=== PATIENT | female | born 1960 | race Caucasian/White ===

== ENCOUNTER → 2017-04-02 | Outpatient (CLI) | payer OTHER ==
[~2017-04-02] MED LIST: ALBU0.632 IH; CITA20TA12 PO; ESTR1PAT28 TOP; MELO-195 PO; [UNRECOGNIZED DRUG - REMARK]
== END ==
LOC: LAB 15:41
PROVIDERS: ATTEND Family Medicine
DX: M79.641 Pain in right hand (principal); M25.541 Pain in joints of right hand
CPT/HCPCS: 36415; 84550; 85652

== ENCOUNTER → 2017-04-16 | Outpatient (CLI) | payer OTHER ==
--- NOTE | 2017-04-18 11:48 | Diagnostic Imaging Report ---
EXAMINATION: Bilateral screening mammogram with a Computer Aided Detection (CAD) system. INDICATION: Screening. PERSONAL HISTORY: No current complaints stated on the questionnaire. COMPARISON: 01/07/2016. FINDINGS: The breasts are composed of scattered fibroglandular densities. There are scattered benign-appearing calcifications. Scarring is noted in the upper outer aspect of the breasts on both sides, similar to prior exams. Allowing for technique and positional differences, no suspicious change is seen. IMPRESSION: No significant change. ACR BI-RADS Category 2: Benign findings. Result letter will be mailed to the patient. Note: At least 10% of breast cancer is not imaged by mammography. Dictated by: Dictated on workstation # [id number]
== END ==
LOC: RAD 14:56
PROVIDERS: ATTEND Obstetrics & Gynecology
DX: Z12.31 Encounter for screening mammogram for malignant neoplasm of breast (principal)
CPT/HCPCS: 77067

== ENCOUNTER 2017-06-18 05:35 | Outpatient (CLI) | payer OTHER ==
[~2017-06-18] VITALS: Ht 162.6 cm; Wt 90.7 kg
== END 2017-06-18 14:18 ==
LOC: PREOP 05:35
PROVIDERS: ATTEND Orthopaedic Surgery
DX: Z01.818 Encounter for other preprocedural examination (principal); M65.331 Trigger finger, right middle finger
CPT/HCPCS: 87081

== ENCOUNTER 2017-06-22 10:00 | Day surgery (SDC) | payer OTHER ==
--- NOTE | 2017-06-12 15:19 | HISTORY AND PHYSICAL ---
DATE OF SERVICE: 06/22/2017 Right long finger A1 krystina release. HISTORY: The patient is a 57-year-old female with complaints of right long finger catching and locking. She reports pain at the base of her long finger. She has undergone 2 injections, which have provided only temporary relief of her symptoms. She reports activity limitations because of the finger. This has been interfering with her activities of daily living. Due to failure to resolve with conservative measures, the patient has elected to proceed with operative intervention. REVIEW OF SYSTEMS: No chest pain, no shortness of breath, no dysuria. PAST MEDICAL HISTORY: Denies. PAST SURGICAL HISTORY: , cholecystectomy, hysterectomy, sinus surgery, breast reduction. FAMILY HISTORY: Pancreatic cancer. PRIMARY CARE PROVIDER: Dr. Jacobs. MEDICATIONS: None. No known drug allergies. SOCIAL HISTORY: The patient denies alcohol and tobacco use. PHYSICAL EXAMINATION: The patient is well-developed, well-nourished, in no acute distress. HEENT: Normocephalic, atraumatic. Pupils equal, round, and reactive bilaterally. Oropharynx is clear. NECK: Supple with no lymphadenopathy. LUNGS: Clear to auscultation bilaterally. HEART: Regular rate and rhythm. ABDOMEN: Soft, nontender, nondistended. EXTREMITIES: The right long finger demonstrates tenderness at her A1 krystina. She could demonstrate active catching. She has full MCP, DIP, and PIP flexion and extension. No skin lesions are noted. IMPRESSION: Right long finger trigger finger. PLAN: Right long finger A1 krystina release. The risks and benefits, operative identifications and recovery were discussed at length with the patient. She understands and wishes to proceed. Job ID: [id number] DocumentID: [id number] Dictated Date: 06/12/2017 14:49:06 Acute Coordinator Date: 06/12/2017 15:19:08 Dictated By: MERCED MINOR MD
[~2017-06-22] VITALS: Ht 162.6 cm; Wt 90.7 kg
[2017-06-22] MEDS ORDERED: LIDOCAINE 1% INJ 20 ML (XYLOCAINE) VIAL ONE (10:08)
[2017-06-22] MEDS ORDERED: BUPIVACAINE 0.5% 30 ML (SENSORCAINE) VIAL ONE (10:08)
[2017-06-22] MEDS ORDERED: MIDAZOLAM 2 MG/2 ML (VERSED) VIAL ONE (10:13)
[2017-06-22] MEDS ORDERED: LACTATED RINGERS 1,000 ML IV PRN (10:13)
[2017-06-22] MEDS ORDERED: proPOfol 200 MG/20 ML (DIPRIVAN) VIAL IV ONE (10:14)
[2017-06-22] MEDS ORDERED: LIDOCAINE PF 2% 5 ML (XYLOCAINE) VIAL ONE (10:14)
[2017-06-22] MEDS ORDERED: CATHETER FLUSH 10 ML SYR IV PRN (10:15)
[2017-06-22] MEDS ORDERED: ceFAZolin 1 GM/NS 50 ML IVPB IV ONE ×2 (10:15)
[2017-06-22] MEDS ORDERED: fentaNYL INJECTION 100 MCG/2 ML AMP ONE (10:16)
[2017-06-22 10:45] VITALS: BP 136/83
[2017-06-22] MEDS ORDERED: HYDROcodone/APAP 5 MG/325 MG (LORTAB) TAB PO PRN (10:45)
--- NOTE | 2017-06-22 10:46 | Progress Note-Pre Operative ---
Pre-Operative Progress Note H&P Reviewed The H&P was reviewed, patient examined and no changes noted. Date Seen by Provider: Jun 22, 2017 Time Seen by Provider: 10:40 Date H&P Reviewed: Jun 22, 2017 Time H&P Reviewed: 10:46 Pre-Operative Diagnosis: right long finger trigger finger MERCED MINOR MD Jun 22, 2017 10:46
--- NOTE | 2017-06-22 10:48 | Progress Note-Post Operative ---
Post-Operative Progess Note Surgeon (s)/Calendering Machine Operator (s) Surgeon MERCED MINOR MD Calendering Machine Operator: Channing Barrera Pre-Operative Diagnosis right long finger trigger finger Post-Operative Diagnosis right long finger trigger finger Procedure & Operative Findings Date of Procedure 06/22/17 Procedure Performed/Findings right long finger A1 krystina release Anesthesia Type MAC plus local Estimated Blood Loss Estimated blood loss (mL): minimal Specimens/Packing Specimens Removed none Packing: none MERCED MINOR MD Jun 22, 2017 10:48
[2017-06-22] MEDS ORDERED: MIDAZOLAM 2 MG/2 ML (VERSED) VIAL IVP ONE (11:00)
[2017-06-22] MEDS ORDERED: LACTATED RINGERS 1,000 ML IV ONE (11:14)
[2017-06-22 11:45] VITALS: BP 133/83
[2017-06-22] MEDS ORDERED: HYDR-3812 PO (12:04)
[2017-06-22 12:15] VITALS: BP 117/88
[2017-06-22 12:25] VITALS: BP 117/88
--- NOTE | 2017-06-23 06:08 | OPERATIVE REPORT ---
DATE OF SERVICE: 06/22/2017 PREOPERATIVE DIAGNOSIS: Right long finger trigger finger. POSTOPERATIVE DIAGNOSIS: Right long finger trigger finger. PROCEDURE PERFORMED: Right long finger A1 krystina release. SURGEON: Mihai Minor MD ELECTRIC TRACK SWITCH MAINTAINER: Channing Barrera who assisted throughout the procedure and closed the incision. ANESTHESIA: Monitored anesthesia care plus local by Clarissa Bazzi CRNA TOURNIQUET TIME: 4 minutes at 250 mmHg. ESTIMATED BLOOD LOSS: Minimal. DRAINS: None. COMPLICATIONS: None. POSTOPERATIVE PLAN: Early range of motion. The patient was transferred to the recovery room awake and in stable condition. STATEMENT OF MEDICAL NECESSITY: The patient is a 57-year-old right hand dominant female with complaints of right long finger catching and locking. She was markedly tender over A1 krystina. She had undergone treatment with injections but only temporarily relief of her symptoms and due to functional impairment and failure to improve with conservative measures, the patient elected to proceed with surgical intervention. DESCRIPTION OF PROCEDURE: After risks and benefits of the procedure were discussed and questions were answered an informed consent was signed and placed on the chart. The operative site was confirmed in the preoperative holding area and initialed by the surgeon. The patient was then transported to the operating room and after adequate level of monitored anesthesia care was obtained, a time-out was called confirming the operative site and under sterile conditions, the right long finger incision site was infiltrated with a combination of plain lidocaine and plain Marcaine. The right upper extremity was then elevated and the tourniquet was inflated to 250 mmHg. A longitudinal incision was made over the A1 krystina palmarly and the underlying soft tissues were carefully dissected with a hemostat. The A1 krystina was identified and incised longitudinally. The finger was then taken through a range of motion with full flexion and extension noted with no catching or locking noted. The superficial aspect of the flexor tendon demonstrated longitudinal fraying and a split which was incomplete. The tourniquet was deflated for total tourniquet time of 4 minutes. Pressure was used for hemostasis. The wound was copiously irrigated and closed with 4-0 nylon in simple interrupted fashion. A soft dressing was applied and the patient was transferred to the recovery room awake and in stable condition. Job ID: [id number] DocumentID: [id number] Dictated Date: 06/22/2017 11:19:36 Tower Attendant Date: 06/23/2017 06:07:57 Dictated By: MIHAI MINOR MD
== END 2017-06-22 12:25 | disposition home or self-care (01) ==
LOC: SDC 10:00
PROVIDERS: ATTEND Orthopaedic Surgery
DX: M65.331 Trigger finger, right middle finger (principal); J30.2 Other seasonal allergic rhinitis

== ENCOUNTER → 2017-07-04 | Outpatient (CLI) | payer OTHER ==
[~2017-07-04] MED LIST changes: +HYDR-3812 PO
--- NOTE | 2017-07-04 19:28 | Diagnostic Imaging Report ---
INDICATION: Fever, congestion, shortness of breath and cough for four days. EXAMINATION: Two-view chest dated 07/04/2017. COMPARISONS: 09/15/2013. FINDINGS: Heart is unremarkable. Pulmonary vasculature is within normal limits. There is an airspace opacity best seen on the lateral view superimposed upon the mid spine. Given symptoms, this is likely pneumonia perhaps in the left suprahilar region. No effusions are seen and there is no pneumothorax. IMPRESSION: 1. Suspected infiltrate best seen on lateral view within the posterior aspect of the mid chest. Follow-up imaging recommended to assure resolution. Dictated by: Dictated on workstation # [id number]
== END ==
LOC: RAD 17:54
PROVIDERS: ATTEND Family Medicine
DX: R05 Cough (principal); R06.2 Wheezing; R50.9 Fever, unspecified
CPT/HCPCS: 71020

== ENCOUNTER → 2018-04-19 | Outpatient (CLI) | payer OTHER ==
[~2018-04-19] MED LIST changes: +ACHD5005 PO; -HYDR-3812 PO
--- NOTE | 2018-04-19 13:48 | Diagnostic Imaging Report ---
INDICATION: Routine screening. COMPARISON: Comparison is made with prior study from 04/16/2017 and 01/07/2016. TECHNIQUE: 2D and 3D bilateral screening mammography was performed with computer-aided detection (CAD) system. FINDINGS: Scattered fibroglandular densities are identified bilaterally. The overall parenchymal pattern is stable. There is scarring in the upper-outer left breast, stable. There are benign calcifications bilaterally. No mass or malignant appearing microcalcifications are seen. The axillae are unremarkable. IMPRESSION: No mammographic features suspicious for malignancy are identified. ACR BI-RADS Category 2: Benign findings. Result letter will be mailed to the patient. Note: At least 10% of breast cancer is not imaged by mammography. Dictated by: Dictated on workstation # [id number]
== END ==
LOC: RAD 10:56
PROVIDERS: ATTEND Obstetrics & Gynecology
DX: Z12.31 Encounter for screening mammogram for malignant neoplasm of breast (principal)
CPT/HCPCS: 77067

== ENCOUNTER → 2018-07-05 | Outpatient (CLI) | payer OTHER | LOC: CARD 14:25 | PROVIDERS: ATTEND Family Medicine | DX: Z00.00 Encounter for general adult medical examination without abnormal findings (principal); R07.9 Chest pain, unspecified | CPT/HCPCS: 93005 ==

== ENCOUNTER → 2018-07-11 | Outpatient (CLI) | payer OTHER | LOC: CARD 14:15 | PROVIDERS: ATTEND Internal Medicine Interventional Cardiology | DX: R07.9 Chest pain, unspecified (principal) ==

== ENCOUNTER → 2019-05-15 | Outpatient (CLI) | payer OTHER ==
--- NOTE | 2019-05-15 16:35 | Diagnostic Imaging Report ---
PROCEDURE: CT sinuses without contrast TECHNIQUE: Multiple contiguous axial images were obtained through the sinuses without the use of intravenous contrast. Coronal and sagittal reformations were then performed. Auto Exposure Controls were utilized during the CT exam to meet ALARA standards for radiation dose reduction. INDICATION: Right eye and frontal headaches. COMPARISON: Comparison made with prior examination from 09/13/2011. FINDINGS: The frontal and ethmoid sinuses are clear. There is some minimal mucosal thickening in the left sphenoid sinus. There has been bilateral maxillary antrectomy. Both maxillary sinuses are clear. The nasal septum is midline. The mastoid air cells are clear. The globes and intraorbital structures are unremarkable. The nasopharyngeal soft tissues are symmetric and without mass effect. There are some low-density nodules in the left parotid gland, likely lymph nodes. IMPRESSION: Minimal mucosal thickening in the left sphenoid sinus. Previous bilateral maxillary antrectomy. Otherwise, unremarkable CT sinus. Dictated by: Dictated on workstation # [id number]
== END ==
LOC: RAD 13:04
PROVIDERS: ATTEND Nurse Practitioner Family
DX: H57.11 Ocular pain, right eye (principal); Z98.890 Other specified postprocedural states
CPT/HCPCS: 70486

== ENCOUNTER → 2019-05-19 | Outpatient (CLI) | payer OTHER ==
--- NOTE | 2019-05-19 12:33 | Diagnostic Imaging Report ---
Indication: Routine screening. Comparison is made with prior mammogram from 04/19/2018 and 04/16/2017. 2-D and 3-D bilateral screening mammography was performed with CAD. Scattered fibroglandular densities are identified bilaterally. Scarring in the upper outer left breast appears stable. There are scattered benign calcifications bilaterally. No new mass or malignant-appearing microcalcifications are seen. Axillae are unremarkable. Impression: BI-RADS category 2 No mammographic features suspicious for malignancy are identified. Dictated by: Dictated on workstation # [id number]
== END ==
LOC: RAD 10:44
PROVIDERS: ATTEND Obstetrics & Gynecology
DX: Z12.31 Encounter for screening mammogram for malignant neoplasm of breast (principal)
CPT/HCPCS: 77067

== ENCOUNTER 2019-06-14 22:04 | Emergency (ER) | payer OTHER ==
[~2019-06-14] VITALS: Ht 162.6 cm; Wt 95.3 kg
--- NOTE | 2019-06-14 23:11 | ED Lower Extremity ---
General Chief Complaint: Lower Extremity Stated Complaint: L KNEE PAIN Nursing Triage Note: HAD AN INJECTIONIN HER LEFT KNEE ON SUNDAY D/T CHRONIC PAIN FELT GOOD SUNDAY THEN THIS EVENING STARTED HAVING PAIN AND COULD NO LONGER BEAR WEIGHT. Nursing Sepsis Screen: No Definite Risk Source: patient Exam Limitations: no limitations (BRY LEBLANC) History of Present Illness Date Seen by Provider: Jun 14, 2019 Time Seen by Provider: 22:50 Initial Comments Pt presents with left knee pain that initially started 2 weeks ago as a catching or clicking in her knee. she saw an orthopedist on 2 days ago and he injected a steroid and pain medication. 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 She states this morning the knee felt fine but this afternoon it started hurting a little. She put some ice on it and rested it for a few hours, but then started to get ready for a wedding. She then noticed the pain increasing significantly and she was barely able to walk on it. She took some Motrin and Tylenol but they did not help much and she is unable to bear any weight on it currently. (BRY LEBLANC) Initial Comments Here with increasing pain today of the left knee. Did have injected 2 days ago. She was fine yesterday but pain today that limited her ability to walk on it. She is able to move the knee but has significant pain when she stands on it. Denies fevers or increasing redness. Does have some swelling to the knee. Onset: this morning Severity: moderate Method of Injury: unknown Modifying Factors: Improves With Immobilization; Worse With Movement (RODRI MORENO MD) Allergies and Home Medications Allergies Coded Allergies: No Known Drug Allergies (Unverified , 06/14/19) Patient Home Medication List Home Medication List Reviewed: Yes (RODRI MORENO MD) Review of Systems Constitutional: no symptoms reported EENTM: see HPI Respiratory: no symptoms reported Cardiovascular: no symptoms reported Gastrointestinal: no symptoms reported Genitourinary: no symptoms reported Musculoskeletal: joint pain (Left Knee ), joint swelling (Left knee) Skin: no symptoms reported Psychiatric/Neurological: No Symptoms Reported (BRY LEBLANC) Constitutional: No chills, No fever Respiratory: no symptoms reported Cardiovascular: no symptoms reported Musculoskeletal: joint pain (Left Knee ), joint swelling (Left knee), muscle pain (RODRI MORENO MD) Past Whcbxme-Qoiyak-Egxzgx Hx Past Med/Social Hx: Reviewed Nursing Past Med/Soc Hx (RODRI MORENO MD) Patient Social History Alcohol Use: Denies Use Recreational Drug Use: No 2nd Hand Smoke Exposure: No Recent Foreign Travel: No Contact w/Someone Who Travel: No Recent Infectious Disease Expo: No Recent Hopitalizations: No Physical Abuse: No Sexual Abuse: No Mistreated: No Fear: No (BRY LEBLANC) Immunizations Up To Date Date of Influenza Vaccine: Aug 08, 2016 (BRY LEBLANC) Seasonal Allergies Seasonal Allergies: Yes (BRY LEBLANC) Past Medical History Surgeries: Yes (C/S X2, BREAST REDUCTION, FOOT SX) Section, Gallbladder, Hysterectomy Respiratory: No Cardiac: No Neurological: No : No Reproductive Disorders: No 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 0oz. 95.509386du; 34.3 BMI Method:Stated General Appearance: WD/WN, mild distress Neck: full range of motion, normal inspection Cardiovascular: regular rate, rhythm, no edema, no gallop, no JVD, no murmur Respiratory: lungs clear, normal breath sounds, no respiratory distress, no accessory muscle use Back: normal inspection, no vertebral tenderness Knees: right knee non-tender, right knee normal inspection, right knee normal range of motion, right knee no evidence of injury; left knee pain, left knee soft tissue tenderness, left knee swelling Ankles: bilateral ankle non-tender, bilateral ankle normal inspection, bilateral ankle normal range of motion, bilateral ankle no evidence of injury Feet: bilateral foot non-tender, bilateral foot normal inspection, bilateral foot normal range of motion, bilateral foot no evidence of injury Neurologic/Tendon: normal sensation, normal motor functions Neurologic/Psychiatric: no motor/sensory deficits, alert, normal mood/affect, oriented x 3 Skin: normal color, warm/dry (BENJI,BRY MED STUDEN) General Appearance: WD/WN, mild distress Cardiovascular: regular rate, rhythm, no murmur Respiratory: lungs clear, normal breath sounds Knees: left knee other (mild effusion to the left knee but no significant redness. Mild vague warmth but not much different than the right leg. Is able to range the knee to 90 and back to 0.) Neurologic/Psychiatric: alert, oriented x 3 (RODRI MORENO MD) Progress/Results/Core Measures Results/Orders My Orders Orders - RODRI MORENO MD Hydrocodone/Apap 5/325 Tablet (Lortab 5 (06/14/19 23:45) Ketorolac Injection (Toradol Injection) (06/14/19 23:37) Hydrocodone/Apap 5/325 Tablet (Lortab 5 (06/14/19 23:32) Ketorolac Injection (Toradol Injection) (06/14/19 23:32) (RODRI MORENO MD) Medications Given in ED Current Medications Medications Dose Ordered Sig/Shiv Route Start Time Stop Time Status Last Admin Dose Admin Acetaminophen/ Hydrocodone Bitart 1 tab ONCE ONCE PO 06/14/19 23:45 06/14/19 23:46 DC 06/14/19 23:42 1 TAB (RODRI MORENO MD) Vital Signs/I&O 06/14/19 22:20 Temp 98.2 Pulse 91 Resp 18 B/P (MAP) 149/88 (108) Pulse Ox 95 (RODRI MORENO MD) Blood Pressure Mean: 108 Progress Progress Note : Time: 22:50 Progress Note Pt seen by me. Pt presents with knee pain and unable to bear weight. She received a steroid injection 2 days ago and worked a full shift on it yesterday. Likely overworked the knee yesterday, but still a chance of infection from the injection. The knee is slightly swollen, but no redness or warmth indicating a septic joint currently. I spoke with Dr Moreno who saw the patient and prescribed her a Toradol shot and Hydrocodone for pain relief and inflammation. SHe was advised to rest, ice, elevate, and take an anti inflammatory while keeping an eye out for signs of the joint being infected. (BRY LEBLANC) Progress Note : Progress Note I have seen and evaluated the patient and agree with above except as indicated. I have directed the plan of care. Toradol 60 mg IM and hydrocodone 5/325 one tab by mouth given. Monitor patient. 0027: Doing a little better and was able to ambulate to the bathroom with assistance of walker. She feels that she can do this at home at this point with the understanding that if there is findings concerning for infection including fever or increasing redness she will return. Discharged home with return precautions. Patient verbalize understanding instructions and agreement with plan. (RODRI MORENO MD) Departure Impression Primary Impression: Left knee pain Qualified Codes: M25.562 - Pain in left knee Disposition: 01 HOME, SELF-CARE Condition: Stable Departure-Patient Inst. Decision time for Depature: 00:28 (RODRI MORENO MD) Referrals: JORGE NAVARRO DO (PCP/Family) Primary Care Physician Patient Instructions: Knee Pain (DC), Knee Pain Add. Discharge Instructions: All discharge instructions reviewed with patient and/or family. Voiced understanding. You may continue ibuprofen 800 mg every 6-8 hours as needed for pain. You may take the pain medication as prescribed and you may take one pain pill with 1 extra strength Tylenol every 6 hours or 2 extra strength Tylenol every 6 hours but do not exceed 4000 mg of Tylenol/acetaminophen in 24 hours. Use ice packs to the knee and keep it elevated. It is important that you rest the left knee and leg over the next [address] Moran's office on Sunday morning for recheck and appointment. Return for increasing pain, increasing redness, fever, increasing swelling or other concerns as needed. Scripts Hydrocodone Bit/Acetaminophen (Hydrocodone/Acetaminophen 5/325mg Tablet) 1 Tab Tab 1 EACH PO Q6H PRN for PAIN-MODERATE MDD 10 for 2 Days, #8 TAB 0 Refills Prov: RODRI MORENO MD 06/15/19 BRY LEBLANC [facility] Jun 14, 2019 23:11 RODRI MORENO MD Jun 15, 2019 00:30
[2019-06-14] MEDS ORDERED: KETOROLAC 60 MG/2 ML VIAL ONE (23:32)
[2019-06-14] MEDS ORDERED: HYDROcodone/APAP 5 MG/325 MG (LORTAB) TAB ONE (23:32)
[2019-06-14] MEDS ORDERED: KETOROLAC 60 MG/2 ML VIAL IM STA (23:37)
[2019-06-14] MEDS ORDERED: HYDROcodone/APAP 5 MG/325 MG (LORTAB) TAB PO ONE (23:45)
[2019-06-15] MEDS ORDERED: ACHD5005 PO (00:30)
[2019-06-15 00:49] VITALS: BP 131/78
== END 2019-06-15 00:49 | disposition home or self-care (01) ==
LOC: EDUNIT# 22:04 → ER 22:05
DX: M25.562 Pain in left knee (principal); Z90.710 Acquired absence of both cervix and uterus
CPT/HCPCS: 99283

== ENCOUNTER → 2019-06-18 | Outpatient (CLI) | payer OTHER ==
--- NOTE | 2019-06-18 16:44 | Diagnostic Imaging Report ---
PROCEDURE: MRI left joint lower extremity without contrast. TECHNIQUE: Multiplanar, multisequence non contrast-enhanced MRI of the left lower extremity was accomplished. INDICATION: Left knee pain with no known injury. TECHNIQUE: Multiplanar, multisequence noncontrast MRI examination of the left knee. COMPARISON: None. FINDINGS: No acute fracture or dislocation is seen in the left knee. Alignment appears normal. There is a small left knee joint effusion. The articular cartilage in the patellofemoral compartment demonstrates mild thinning and surface irregularity with no large full-thickness defects. The articular cartilage in the medial and lateral compartments demonstrate mild thinning and heterogeneity with no full-thickness defects. There is increased signal in the posterior horn of the medial meniscus, with suspected horizontal tear of the posterior horn (image 17, series 6). There is also mildly increased signal at the anterior horn of the lateral meniscus, with no discrete tear seen. The anterior and posterior cruciate ligaments are intact. The medial collateral ligament appears intact. The lateral collateral ligamentous complex is intact. The extensor mechanism is intact. The medial and lateral retinacula are intact. No soft tissue fluid collections are seen. IMPRESSION: 1. Suspected horizontal tear of the posterior horn of the medial meniscus. Intrasubstance degeneration of the lateral meniscus. 2. Small left knee joint effusion. Dictated by: Dictated on workstation # [id number]
== END ==
LOC: RAD 15:34
PROVIDERS: ATTEND Nurse Practitioner
DX: M17.12 Unilateral primary osteoarthritis, left knee (principal); M25.462 Effusion, left knee; S83.242A Other tear of medial meniscus, current injury, left knee, initial encounter
CPT/HCPCS: 73721

== ENCOUNTER 2019-06-20 05:33 | Outpatient (CLI) | payer OTHER ==
[~2019-06-20] VITALS: Ht 162.6 cm; Wt 95.3 kg
== END 2019-06-20 13:17 | disposition home or self-care (01) ==
LOC: PREOP 05:33
PROVIDERS: ATTEND Orthopaedic Surgery
DX: Z01.818 Encounter for other preprocedural examination (principal)

== ENCOUNTER 2019-06-25 08:01 | Day surgery (SDC) | payer OTHER ==
--- NOTE | 2019-06-19 15:13 | HISTORY AND PHYSICAL ---
DATE OF SERVICE: 06/25/2019 ADMISSION HISTORY AND PHYSICAL This will be for outpatient surgery on 06/25/2019 for left knee arthroscopy. HISTORY OF PRESENT ILLNESS: The patient is a 59-year-old female with complaints of left knee pain, which has been increased over the last four weeks. She underwent an injection, which did not provide any significant relief. She underwent an MRI, which revealed a medial meniscus tear as well as some chondromalacia. Due to functional impairment, the patient elected to proceed with surgical intervention. She has had to ambulate with a walker and reports difficulty with kneeling, squatting and twisting. REVIEW OF SYSTEMS: No chest pain, no shortness of breath, no dysuria. PAST MEDICAL HISTORY: Denies. PAST SURGICAL HISTORY: section, cholecystectomy, hysterectomy, sinus and breast reduction. FAMILY HISTORY: Significant for hypertension, pancreatic cancer. PRIMARY CARE PROVIDER: Dr. Jacobs. CURRENT MEDICATIONS: None. ALLERGIES: ENVIRONMENTAL. SOCIAL HISTORY: The patient denies alcohol and tobacco use. RADIOGRAPHS: Revealed mild medial patellofemoral joint space narrowing. PHYSICAL EXAMINATION: GENERAL: The patient is well developed, well-nourished, in no acute distress. HEENT: Normocephalic, atraumatic. Pupils are equal, round and reactive to light. Oropharynx is clear. NECK: Supple, no lymphadenopathy. LUNGS: Clear to auscultation bilaterally. HEART: Regular rate and rhythm. ABDOMEN: Soft, nontender, nondistended. EXTREMITIES: The left knee demonstrates marked tenderness along the medial joint line. She has mild effusion. She has pain medially with Blake's. No varus valgus laxity. Negative anterior and posterior drawer. Range of motion is 0/0/100. The patient ambulates with a walker. She has pain with patellar loading. 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 PLAN: Left knee arthroscopy, partial medial meniscectomy, and chondroplasty. We discussed risks, benefits, options, ramifications and recovery. She understands and wishes to proceed. Job ID: [id number] DocumentID: [id number] Dictated Date: 06/19/2019 10:29:42 Sail Cutter Date: 06/19/2019 15:12:33 Dictated By: MERCED MINOR MD
[2019-06-25] VITALS (12 sets, daily range): BP systolic 79–145; BP diastolic 51–98
[~2019-06-25] VITALS: Ht 162.6 cm; Wt 95.3 kg
[2019-06-25] MEDS ORDERED: HYDROcodone/APAP 7.5 MG/325 MG (LORTAB, LORCET PLUS) TABLET PO PRN (08:15)
[2019-06-25] MEDS ORDERED: ceFAZolin INJECTION 1,000 MG in WATER (STERILE) FOR INJECTION 10 ML IV ONE (08:15)
[2019-06-25] MEDS ORDERED: ONDANSETRON 4 MG/2 ML (SDV) Z0FRAN ONE (08:17)
[2019-06-25] MEDS ORDERED: proPOfol 200 MG/20 ML (DIPRIVAN) VIAL IV ONE (08:17)
[2019-06-25] MEDS ORDERED: LIDOCAINE PF 2% 5 ML (XYLOCAINE) VIAL ONE (08:17)
[2019-06-25] MEDS ORDERED: fentaNYL INJECTION 100 MCG/2 ML AMP ONE (08:17)
[2019-06-25] MEDS ORDERED: SEVOFLURANE (ULTANE) 15 ML INHAL SOLN ONE (08:17)
[2019-06-25] MEDS ORDERED: MIDAZOLAM 2 MG/2 ML (VERSED) VIAL ONE (08:17)
[2019-06-25] MEDS ORDERED: DEXAMETHASONE 10 MG/ML (DECADRON) 1 ML VIAL ONE (08:17)
[2019-06-25] MEDS ORDERED: PROPOFOL INJECTION 50 ML IV ONE (08:44)
[2019-06-25] MEDS ORDERED: FAMOTIDINE 20MG/2ML IV (PEPCID) IV ONE (08:45)
[2019-06-25] MEDS ORDERED: SCOPOLAMINE 1.5 MG (TRANSDERM-SCOP) PATCH TOP ONE (08:45)
[2019-06-25] MEDS ORDERED: ONDANSETRON 4 MG/2 ML (SDV) Z0FRAN IV ONE (08:45)
[2019-06-25] MEDS: LACTATED RINGERS 1,000 ML IV PRN ×2 (08:48→12:27)
[2019-06-25] MEDS ORDERED: morphine PF (DURAMORPH) 10 MG/10 ML AMP ONE (09:01)
[2019-06-25] MEDS ORDERED: BUPIVACAINE 0.25% 30 ML (SENSORCAINE) VIAL ONE (09:01)
--- NOTE | 2019-06-25 09:22 | Progress Note-Pre Operative ---
Pre-Operative Progress Note H&P Reviewed The H&P was reviewed, patient examined and no changes noted. Date Seen by Provider: Jun 25, 2019 Time Seen by Provider: 09:21 Date H&P Reviewed: Jun 25, 2019 Time H&P Reviewed: 09:21 Pre-Operative Diagnosis: left medial and lateral meniscal tears and chondromalacia MERCED MINOR MD Jun 25, 2019 09:22
--- NOTE | 2019-06-25 09:24 | Progress Note-Post Operative ---
Post-Operative Progess Note Surgeon (s)/Sales Expert Home Theater (s) Surgeon MERCED MINOR MD Sales Expert Home Theater: Channing Barrera Pre-Operative Diagnosis left medial and lateral meniscal tears and chondromalacia Post-Operative Diagnosis left medial meniscal tear and chondromalacia of the lateral tibia plateau and patella Procedure & Operative Findings Date of Procedure 06/25/19 Procedure Performed/Findings left knee arthroscopic partial medial meniscectomy and chondroplasty of the lateral tibia plateau and patella Anesthesia Type GETA Estimated Blood Loss Estimated blood loss (mL): minimal Specimens/Packing Specimens Removed none Packing: none MERCED MINOR MD Jun 25, 2019 09:24
[2019-06-25] MEDS ORDERED: HYDR-3816 PO (10:14)
[2019-06-25] MEDS ORDERED: ONDANSETRON 4 MG/2 ML (SDV) Z0FRAN IVP PRN (10:15)
[2019-06-25] MEDS ORDERED: morphine INJ 10 MG/ML 1ML (SYR OR VIAL) IVP ONE (10:15)
--- NOTE | 2019-06-25 12:27 | NUR ---
ZOFRAN 8 MG IV. ANOTHER BAG OF LR HUNG.
[2019-06-25] MEDS ORDERED: ONDANSETRON 4 MG/2 ML (SDV) Z0FRAN IVP ONE (12:30)
--- NOTE | 2019-06-25 12:47 | Anesthesia-General Post-Op ---
General Patient Condition Mental Status/LOC: Same as Preop Cardiovascular: Satisfactory Nausea/Vomiting: Absent Respiratory: Satisfactory Pain: Controlled Complications: Absent Post Op Complications Complications None Follow Up Care/Instructions Patient Instructions None needed. Anesthesia/Patient Condition Patient Condition Patient is doing well, no complaints, stable vital signs, no apparent adverse anesthesia problems. No complications reported per nursing. D/C home per [facility] Criteria: Yes CRYSTAL LANDAVERDE CRNA Jun 25, 2019 12:47
[2019-06-25] MEDS ORDERED: PROMETHAZINE INJ 25 MG/ML (PHENERGAN) AMP ONE (12:51)
--- NOTE | 2019-06-25 13:05 | NUR ---
PHENERGAN 12.5 MG IV GIVEN FOR CONTINUED NAUSEA. NO VOMITING.
[2019-06-25] MEDS ORDERED: PROMETHAZINE INJ 25 MG/ML (PHENERGAN) AMP IVP ONE (13:15)
--- NOTE | 2019-06-25 13:29 | OPERATIVE REPORT ---
DATE OF SERVICE: 06/25/2019 PREOPERATIVE DIAGNOSES: 1. Left knee medial meniscus tear. 2. Left knee lateral meniscus tear. 3. Left knee chondromalacia of patella. POSTOPERATIVE DIAGNOSES: 1. Left knee medial meniscus tear. 2. Left knee chondromalacia of patella. 3. 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 PROCEDURES: 1. Left knee arthroscopic partial medial meniscectomy. 2. Left knee arthroscopic chondroplasty of the patella. 3. Left knee arthroscopic chondroplasty of lateral tibial plateau. SURGEON: Mihai Minor MD SURTASS ANALYST: Channing Barrera, who assisted throughout the procedure and closed the incisions. ANESTHESIA: General endotracheal by Dr. Arreguin. TOURNIQUET TIME: Not applicable. ESTIMATED BLOOD LOSS: Minimal. DRAINS: None. COMPLICATIONS: None. POSTOPERATIVE PLAN: Routine arthroscopy protocol. The patient was transferred to the recovery room awake and in stable condition. STATEMENT OF MEDICAL NECESSITY: The patient is a 59-year-old female with acute medial knee pain, catching, locking and swelling. An MRI revealed a medial meniscus tear. She underwent treatment with injection without relief. Due to functional impairment and failure to improve with conservative measures, the patient elected to proceed with surgical intervention. Examination under anesthesia revealed range of motion 0/0/135 with negative Ra, negative anterior and posterior drawer. No varus valgus laxity, negative pivot shift. ARTHROSCOPIC FINDINGS: The patella demonstrated grade II chondral flaps inferiorly in an 8 x 8 area of the trochlea demonstrated no gross chondral abnormalities. Medial and lateral gutters were clear. The lateral compartment demonstrated grade II chondral flaps in the posterior aspect of the tibial plateau in an 8 x 8 area. The ACL and PCL were intact. Medial compartment demonstrated a flap tear of the body of the medial meniscus involving approximately 20% of the body. PROCEDURE: After risks and benefits of the procedure were discussed and questions were answered, an informed consent was signed and placed on chart, the operative site was confirmed in the preoperative holding area initialed by the surgeon. The patient was transferred to the operating room. After adequate levels of general endotracheal anesthetic were obtained, a timeout was called, confirming the operative site. Examination under anesthesia was performed with above findings noted. Left lower extremity was prepped and draped in the usual sterile fashion. The knee joint was injected with 60 mL of fluid and a standard inferolateral portal was placed with arthroscope. Under direct visualization, inferior medial portal was created. The menisci and cruciates carefully probed with the above findings noted. The unstable chondral flaps on the lateral tibial plateau were debrided with a shaver back to a stable edge. Scope was redirected into the patellofemoral joint space where the unstable chondral flaps of the patella were debrided with shaver back to a stable edge. Scope was redirected into the medial compartment and unstable medial meniscus tear was debrided with a shaver back to a stable edge. This was carefully probed with no further tearing or instability noted. The knee was copiously irrigated. Portal sites were closed with 4-0 nylon in simple interrupted fashion. Knee was injected with Duramorph. Port sites were infiltrated with plain Marcaine. A soft dressing was applied. The patient was transferred to the recovery room awake and in stable condition. Job ID: [id number] DocumentID: [id number] Dictated Date: 06/25/2019 10:17:21 Booth Operator Date: 06/25/2019 13:28:24 Dictated By: MIHAI MINOR MD
--- NOTE | 2019-06-25 14:55 | NUR ---
PATIENT AWAKE AND FEELING "BETTER." EATING CRACKERS. DENIES ANY NAUSEA. TAKING FLUIDS WELL. PATIENT UP TO SIT AT THE SIDE OF THE BED. PHYSICAL THERAPY NOTIFIED TO COME WORK WITH THE PATIENT.
--- NOTE | 2019-06-25 15:16 | Physical Therapy Progress Note ---
Therapy Progress Note Provided gait training WBAT with FWW and instructed in use of a cane if she desired. Step training as well. Educated her on HEP and provided her pictures. ; Pt demonstrated correct gait performance and HEP . KASH BAILEY PT Jun 25, 2019 15:16
--- NOTE | 2019-06-25 15:50 | NUR ---
PATIENT'S HERE TO GET PATIENT. PATIENT STATES SHE IS NO LONGER FEELING NAUSEATED AND WOULD LIKE TO GO HOME. PATIENT TRANSFERRED INTO WHEELCHAIR INDEPENDENTLY. THIS RN ACCOMPANIED HER TO THE VEHICLE. DC'D AT 1550.
== END 2019-06-25 15:50 | disposition home or self-care (01) ==
LOC: SDC 08:01
PROVIDERS: ATTEND Orthopaedic Surgery
DX: S83.242A Other tear of medial meniscus, current injury, left knee, initial encounter (principal); M94.262 Chondromalacia, left knee; J30.9 Allergic rhinitis, unspecified; E66.9 Obesity, unspecified; Z90.710 Acquired absence of both cervix and uterus; Z90.89 Acquired absence of other organs; Z79.891 Long term (current) use of opiate analgesic; Z82.49 Family history of ischemic heart disease and other diseases of the circulatory system; Z80.0 Family history of malignant neoplasm of digestive organs
CPT/HCPCS: 87081

== ENCOUNTER → 2020-04-05 | Outpatient (CLI) | payer OTHER ==
[~2020-04-05] MED LIST changes: +HYDR-34 PO
== END ==
LOC: LABNPT 07:00
PROVIDERS: ATTEND Family Medicine
DX: R50.9 Fever, unspecified (principal); R05 Cough; Z20.828 Contact with and (suspected) exposure to other viral communicable diseases
CPT/HCPCS: 87430; 87804; U0002; 87635

== ENCOUNTER → 2020-06-11 | Outpatient (CLI) | payer OTHER ==
[2020-06-11 07:18] LABS: BASOPHILS # (AUTO) 0.1 10^3/uL (0.0-0.1); BASOPHILS % (AUTO) 1 % (0-10); EOSINOPHILS # (AUTO) 0.3 10^3/uL (0.0-0.3); EOSINOPHILS % (AUTO) 5 % (0-10); HEMATOCRIT 40 % (35-52); HEMOGLOBIN 12.7 G/DL (11.5-16.0); LYMPHOCYTES % (AUTO) 35 % (12-44); MEAN CORPUSCULAR HEMOGLOBIN 28 PG (25-34); MEAN CORPUSCULAR HGB CONC 32 G/DL (32-36); MEAN CORPUSCULAR VOLUME 89 FL (80-99); MEAN PLATELET VOLUME 9.1 FL (7.4-10.4); MONOCYTES # (AUTO) 0.6 X 10^3 (0.0-1.0); MONOCYTES % (AUTO) 10 % (0-12); NEUTROPHILS # (AUTO) 2.8 X 10^3 (1.8-7.8); NEUTROPHILS % (AUTO) 49 % (42-75); PLATELET COUNT 334 10^3/uL (130-400); RED CELL DISTRIBUTION WIDTH 14.2 % (10.0-14.5); WHITE BLOOD COUNT 5.7 10^3/uL (4.3-11.0)
[2020-06-11 07:52] LABS: ALANINE AMINOTRANSFERASE 29 U/L (0-55); ALBUMIN 3.9 GM/DL (3.2-4.5); ALKALINE PHOSPHATASE 108 U/L (40-136); BILIRUBIN,TOTAL 0.5 MG/DL (0.1-1.0); BUN/CREATININE RATIO 17; CALCIUM 9.1 MG/DL (8.5-10.1); CARBON DIOXIDE 24 MMOL/L (21-32); CHLORIDE 106 MMOL/L (98-107); CHOLESTEROL 169 MG/DL (< 200); CREATININE SERUM 0.88 MG/DL (0.60-1.30); FREE T4 (FREE THYROXINE) 0.86 NG/DL (0.70-1.48); GFR ESTIMATED > 60; GLUCOSE 102 MG/DL (70-105); HDL CHOLESTEROL 60 MG/DL (40-60); POTASSIUM 3.9 MMOL/L (3.6-5.0); SODIUM 137 MMOL/L (135-145); TOTAL PROTEIN 7.5 GM/DL (6.4-8.2); TRIGLYCERIDES 111 MG/DL (<150); VLDL CHOLESTEROL 22 MG/DL (5-40)
== END ==
LOC: LAB 06:44 → SDC 06:44
PROVIDERS: ATTEND Nurse Practitioner Family
DX: I10 Essential (primary) hypertension (principal); M25.50 Pain in unspecified joint; R73.9 Hyperglycemia, unspecified; R53.83 Other fatigue; R94.5 Abnormal results of liver function studies
CPT/HCPCS: 36415; 80053; 80061; 82306; 82607; 83036; 83735; 84439; 84443; 85025

== ENCOUNTER → 2021-05-26 | Outpatient (CLI) | payer OTHER ==
--- NOTE | 2021-05-26 11:45 | Diagnostic Imaging Report ---
INDICATION: Routine screening. Comparison is made with prior mammogram 05/19/2019 and 04/19/2018. 2-D and 3-D bilateral screening mammography was performed with CAD. Scattered fibroglandular densities are identified bilaterally. Area of scarring in the upper left breast is stable. There are scattered benign calcifications. No mass or malignant-appearing microcalcifications are seen. Axillae are unremarkable. IMPRESSION: BI-RADS Category 2 No mammographic features suspicious for malignancy are identified. ACR BI-RADS Category 2: Benign findings. Result letter will be mailed to the patient. Note: At least 10% of breast cancer is not imaged by mammography. Dictated by: Dictated on workstation # [id number]
== END ==
LOC: RAD 07:25
PROVIDERS: ATTEND Obstetrics & Gynecology
DX: Z12.31 Encounter for screening mammogram for malignant neoplasm of breast (principal)
CPT/HCPCS: 77063; 77067

== ENCOUNTER → 2021-08-10 | Outpatient (CLI) | payer OTHER ==
[2021-08-10 08:19] LABS: BASOPHILS # (AUTO) 0.1 10^3/uL (0.0-0.1); BASOPHILS % (AUTO) 1 % (0-10); EOSINOPHILS # (AUTO) 0.3 10^3/uL (0.0-0.3); EOSINOPHILS % (AUTO) 4 % (0-10); HEMATOCRIT 42 % (35-52); HEMOGLOBIN 13.6 g/dL (11.5-16.0); LYMPHOCYTES # (AUTO) 1.9 10^3/uL (1.0-4.0); LYMPHOCYTES % (AUTO) 31 % (12-44); MEAN CORPUSCULAR HEMOGLOBIN 28 pg (25-34); MEAN CORPUSCULAR HGB CONC 32 g/dL (32-36); MEAN CORPUSCULAR VOLUME 88 fL (80-99); MEAN PLATELET VOLUME 9.1 fL (9.0-12.2); MONOCYTES # (AUTO) 0.7 10^3/uL (0.0-1.0); MONOCYTES % (AUTO) 11 % (0-12); NEUTROPHILS # (AUTO) 3.2 10^3/uL (1.8-7.8); NEUTROPHILS % (AUTO) 52 % (42-75); PLATELET COUNT 324 10^3/uL (130-400); WHITE BLOOD COUNT 6.2 10^3/uL (4.3-11.0)
[2021-08-10 09:05] LABS: ALBUMIN 3.9 GM/DL (3.2-4.5); BILIRUBIN,TOTAL 0.5 MG/DL (0.1-1.0); CALCIUM 9.6 MG/DL (8.5-10.1); CREATININE SERUM 0.82 MG/DL (0.60-1.30); FREE T4 (FREE THYROXINE) 0.88 NG/DL (0.70-1.48); POTASSIUM 4.1 MMOL/L (3.6-5.0); TOTAL PROTEIN 7.6 GM/DL (6.4-8.2)
== END ==
LOC: SDC 08:01
PROVIDERS: ATTEND Family Medicine
DX: Z00.01 Encounter for general adult medical examination with abnormal findings (principal); R73.01 Impaired fasting glucose
CPT/HCPCS: 36415; 80053; 80061; 83036; 84439; 84443; 85025

== ENCOUNTER → 2022-09-20 | Outpatient (CLI) | payer OTHER ==
--- NOTE | 2022-09-20 18:12 | Diagnostic Imaging Report ---
INDICATION: Six months history of cough. It is compared with 07/04/2017 FINDINGS: The lungs are clear. No failure, effusion or pneumothorax. No change. IMPRESSION: Unremarkable two-view chest Dictated by: Dictated on workstation # [id number]
== END ==
LOC: RAD 11:36
PROVIDERS: ATTEND Nurse Practitioner Family
DX: R05.3 Chronic cough (principal)
CPT/HCPCS: 71046

== ENCOUNTER → 2023-06-02 | Outpatient (CLI) | payer OTHER ==
--- NOTE | 2023-06-02 13:20 | Diagnostic Imaging Report ---
INDICATION: Pain. TECHNIQUE: Three views were obtained. FINDINGS: The alignment is normal. The plafonds and talar dome are intact. The ankle mortise is symmetric. There is no fracture or dislocation. There is some spurring in the calcaneus. IMPRESSION: No acute fracture or dislocation. Dictated by: Dictated on workstation # [id number]
--- NOTE | 2023-06-02 13:20 | Diagnostic Imaging Report ---
INDICATION: Pain and swelling. FINDINGS: The alignment is normal. There is no fracture or dislocation. There is mild degenerative spurring in the calcaneus. The soft tissues are unremarkable. IMPRESSION: No acute fracture or dislocation. Dictated by: Dictated on workstation # [id number]
== END ==
LOC: RAD 12:59
PROVIDERS: ATTEND Surgery
DX: M79.89 Other specified soft tissue disorders (principal)
CPT/HCPCS: 73610; 73630

== ENCOUNTER 2023-07-10 13:46 | Outpatient (CLI) | payer OTHER | END 2023-07-10 14:30 | LOC: SLEEP 13:46 | PROVIDERS: ATTEND Nurse Practitioner Family | DX: I10 Essential (primary) hypertension (principal); R06.83 Snoring; K51.90 Ulcerative colitis, unspecified, without complications; R51.9 Headache, unspecified | CPT/HCPCS: G0399 ==

== ENCOUNTER → 2023-08-15 | Outpatient (CLI) | payer BC, OTHER ==
--- NOTE | 2023-08-15 12:04 | Diagnostic Imaging Report ---
INDICATION: Routine screening. COMPARISON: 05/26/2021 and 05/19/2019. TECHNIQUE: 2D and 3D bilateral screening mammography was performed with CAD. FINDINGS: Scattered fibroglandular densities are identified bilaterally. The parenchymal pattern is stable. No mass or malignant-appearing microcalcifications are identified. The axillae are unremarkable. IMPRESSION: No mammographic features suspicious for malignancy are identified. ACR BI-RADS Category 1: Negative. Result letter will be mailed to the patient. Note: At least 10% of breast cancer is not imaged by mammography. Dictated by: Dictated on workstation # [id number]
== END ==
LOC: RAD 07:23
PROVIDERS: ATTEND Nurse Practitioner Family
DX: Z12.31 Encounter for screening mammogram for malignant neoplasm of breast (principal)
CPT/HCPCS: 77063; 77067